=== PATIENT | male | born 1940 | race Caucasian/White ===

== ENCOUNTER → 2017-05-16 | Outpatient (CLI) | payer MEDICARE, OTHER | LOC: RAD 07:32 | PROVIDERS: ATTEND Internal Medicine Cardiovascular Disease | DX: I65.23 Occlusion and stenosis of bilateral carotid arteries (principal); I25.89 Other forms of chronic ischemic heart disease; I25.10 Atherosclerotic heart disease of native coronary artery without angina pectoris; I10 Essential (primary) hypertension; I70.218 Atherosclerosis of native arteries of extremities with intermittent claudication, other extremity | CPT/HCPCS: 78452; 93017; 93880; A9502 ==

== ENCOUNTER → 2017-12-25 | Outpatient (CLI) | payer MEDICARE, OTHER ==
[~2017-12-25] MED LIST: GADOBUTROL 10 MMOL/10 ML PFS ONE
== END | disposition home or self-care (01) ==
LOC: CFH 07:19
PROVIDERS: ATTEND Psychiatry & Neurology Neurology
DX: M50.021 Cervical disc disorder at C4-C5 level with myelopathy (principal); M99.59 Intervertebral disc stenosis of neural canal of abdomen and other regions; T75.3XXA Motion sickness, initial encounter
CPT/HCPCS: 70553; 72156; A9585

== ENCOUNTER 2019-06-09 10:23 | Observation (INO) | payer MEDICARE ==
[~2019-06-09] VITALS: Ht 167.6 cm; Wt 80.1 kg
[2019-06-09 11:26] LABS: BASOPHILS # (AUTO) 0.03 x10^3/uL (0-0.1); BASOPHILS % (AUTO) 1 % (0-1); EOSINOPHILS # (AUTO) 0.13 x10^3/uL (0-0.4); EOSINOPHILS % (AUTO) 2 % (1-7); LYMPHOCYTES # (AUTO) 1.28 x10^3/uL (1-3.4); LYMPHOCYTES % (AUTO) 19 % (22-44); MD NO; MEAN CORPUSCULAR HEMOGLOBIN 32.8 pg (27.5-34.5); MEAN CORPUSCULAR HGB CONC 33.9 g/dL (33.2-36.2); MEAN CORPUSCULAR VOLUME 96.8 fL (81-97); MEAN PLATELET VOLUME 9.4 fL (7.4-10.4); MONOCYTES # (AUTO) 0.67 x10^3/uL (0.2-0.8); MONOCYTES % (AUTO) 10 % (2-9); NEUTROPHILS % (AUTO) 69 % (42-75); PLATELET COUNT 190 x10^3/uL (130-400); RED BLOOD COUNT 4.69 x10^6/uL (4.38-5.82); RED CELL DISTRIBUTION WIDTH 13.5 % (9.4-14.8)
[2019-06-09] MEDS ORDERED: ASPI-496 PO (11:26)
[2019-06-09] MEDS ORDERED: SAW450CA7 PO (11:26)
[2019-06-09] MEDS ORDERED: OMEG1CAP23 PO (11:26)
[2019-06-09] MEDS ORDERED: METO200T47 PO (11:26)
[2019-06-09] MEDS ORDERED: ENAL10TA PO (11:26)
[2019-06-09] MEDS ORDERED: METH5TAB6 PO (11:26)
[2019-06-09] MEDS ORDERED: MAGN400T36 PO (11:26)
[2019-06-09] MEDS ORDERED: CHOL2000 PO (11:26)
[2019-06-09] MEDS ORDERED: BIOT25005 PO (11:26)
[2019-06-09] MEDS ORDERED: ATOR80TA PO (11:26)
[2019-06-09] MEDS ORDERED: FINA5TAB4 PO (11:26)
[2019-06-09 11:30] LABS: ALBUMIN 3.5 g/dL (3.4-5.0); ANION GAP 4 mmol/L (5-15); CALCIUM 9.3 mg/dL (8.5-10.1); CHLORIDE 105 mmol/L (98-107); CREATININE 0.98 mg/dL (0.7-1.3)
[2019-06-09 11:33] LABS: TROPONIN I < 0.015 ng/mL (0.000-0.045)
[2019-06-09] MEDS ORDERED: NITROGLYCERIN OINT 2%, 1GM TP ONE ×2 (12:00→12:03)
--- NOTE | 2019-06-09 12:13 | NUR ---
MD AT BEDSIDE DISCUSSING PLAN OF CARE. PT STATES PAIN IS NOW RADIATING TO HIS BACK. CT TO BE DONE. NITROPASTE PLACED NOTED ON JUL. REPORT TO ARON BIGGS, TELE. TO TOUCH BASES WITH HER AGAIN AFTER CT COMPLETED.
[2019-06-09] MEDS ORDERED: ONDANSETRON 2MG/ML, 2ML ONE (12:18)
[2019-06-09] MEDS ORDERED: ONDANSETRON 2MG/ML, 2ML IV ONE (12:30)
[2019-06-09] MEDS ORDERED: OMNIPAQUE 350 MG/ML, 100ML BOTTLE ONE (12:44)
--- NOTE | 2019-06-09 13:01 | NUR ---
DR FRAUSTO AT [facility]
[2019-06-09] MEDS ORDERED: hydrALAzine 20 MG/ML, 1ML IVPush PRN (13:30)
[2019-06-09] MEDS ORDERED: DOCUSATE 100 MG CAPSULE PO PRN (13:30)
[2019-06-09] MEDS ORDERED: ONDANSETRON ODT 4 MG PO PRN (13:30)
[2019-06-09] MEDS ORDERED: PROMETHAZINE 25 MG/ML, 1ML IM PRN (13:30)
[2019-06-09] MEDS ORDERED: POLYETHYLENE GLYCOL 17 GM PACKET PO PRN (13:30)
[2019-06-09] MEDS ORDERED: ACETAMINOPHEN 325 MG TABLET PO PRN (13:30)
[2019-06-09] MEDS ORDERED: NITROGLYCERIN 0.4 MG BOTTLE (25 TABS) SL PRN (13:30)
[2019-06-09] MEDS ORDERED: ONDANSETRON 2MG/ML, 2ML IVPush PRN (13:30)
[2019-06-09] MEDS ORDERED: OXYcodone IR 5MG TABLET PO PRN (13:30)
[2019-06-09] MEDS ORDERED: BISACODYL 10 MG SUPP PR PRN (13:30)
[2019-06-09 13:46] VITALS: BP 104/69
[2019-06-09 14:02] LABS: FREE T4 (FREE THYROXINE) 1.04 ng/dL (0.76-1.46)
[2019-06-09] MEDS: HEPARIN 5,000 UNITS/ML, 1ML SQ SCH ×2 (14:57→23:26)
[2019-06-09 16:33] LABS: TROPONIN I < 0.015 ng/mL (0.000-0.045)
[2019-06-09 17:41] LABS: MICROSCOPIC AUTO
[2019-06-09 17:49] LABS: CULTURE INDICATED? YES
[2019-06-09 19:06] VITALS: BP 101/62
[2019-06-09 19:15] LABS: TROPONIN I < 0.015 ng/mL (0.000-0.045)
[2019-06-09] MEDS: ATORVASTATIN 80 MG TABLET PO SCH (21:27)
[2019-06-10 01:25] VITALS: BP 97/56
[2019-06-10 01:31] VITALS: BP 100/62
[2019-06-10 04:51] LABS: BASOPHILS # (AUTO) 0.08 x10^3/uL (0-0.1); BASOPHILS % (AUTO) 1 % (0-1); EOSINOPHILS # (AUTO) 0.15 x10^3/uL (0-0.4); EOSINOPHILS % (AUTO) 3 % (1-7); LYMPHOCYTES % (AUTO) 23 % (22-44); MD NO; MEAN CORPUSCULAR HEMOGLOBIN 32.7 pg (27.5-34.5); MEAN CORPUSCULAR HGB CONC 33.7 g/dL (33.2-36.2); MEAN CORPUSCULAR VOLUME 96.9 fL (81-97); MONOCYTES # (AUTO) 0.84 x10^3/uL (0.2-0.8); MONOCYTES % (AUTO) 14 % (2-9); NEUTROPHILS % (AUTO) 59 % (42-75); PLATELET COUNT 145 x10^3/uL (130-400); RED BLOOD COUNT 4.56 x10^6/uL (4.38-5.82); RED CELL DISTRIBUTION WIDTH 13.1 % (9.4-14.8)
[2019-06-10 05:01] LABS: ALBUMIN 3.3 g/dL (3.4-5.0); ANION GAP 6 mmol/L (5-15); CALCIUM 8.8 mg/dL (8.5-10.1); CHLORIDE 106 mmol/L (98-107)
[2019-06-10 05:04] LABS: ALANINE AMINOTRANSFERASE 15 U/L (12-78); ALKALINE PHOSPHATASE 98 U/L (45-117); BILIRUBIN,TOTAL 1.7 mg/dL (0.2-1.0); CHOL/HDL RATIO 2.3; CHOLESTEROL, TOTAL 116 mg/dL (140-239); CREATININE 0.88 mg/dL (0.7-1.3); HDL CHOL % 43 % (26-37); HDL CHOLESTEROL (DIRECT) 50 mg/dL (40-60); LDL CHOLESTEROL,CALCULATED 55 mg/dL (54-169); LDL/HDL RATIO 1.1 (0.5-3.0); TOTAL PROTEIN 6.5 g/dL (6.4-8.2); TRIGLYCERIDES 53 mg/dL (50-200); VLDL CHOLESTEROL 11 mg/dL (0-25)
[2019-06-10] MEDS ORDERED: ASPIRIN 325 MG TABLET EC PO SCH (06:00)
[2019-06-10 06:45] VITALS: BP 107/70
[2019-06-10] MEDS: HEPARIN 5,000 UNITS/ML, 1ML SQ SCH ×3 (07:49→23:36)
[2019-06-10] MEDS: CHOLECALCIFEROL 1,000 UNIT TABLET PO SCH (07:49)
[2019-06-10] MEDS: METHIMAZOLE 5 MG TAB PO SCH (07:50)
[2019-06-10] MEDS: ASPIRIN 81 MG TABLET EC PO SCH (07:50)
[2019-06-10] MEDS: METOPROLOL SUCCINATE 50 MG TAB.ER.24H PO SCH (07:50)
[2019-06-10] MEDS: OMEGA-3/FISH OIL CAPSULE PO SCH (07:50)
[2019-06-10] MEDS: MAGNESIUM OXIDE 400 MG TABLET PO SCH (07:50)
[2019-06-10] MEDS ORDERED: REGADENOSON 0.4 MG/5 ML SYRINGE ONE (08:03)
[2019-06-10] MEDS ORDERED: ENALAPRIL 10 MG TABLET PO SCH (09:00)
[2019-06-10] MEDS ORDERED: TEMPLATE NON-FORMULARY MED. (Biotin** 5,000 MG) PO SCH (09:00)
[2019-06-10] MEDS: CEFTRIAXONE PMX 1GM/50ML 50 ML IV SCH (10:47)
[2019-06-10] MEDS: FINASTERIDE 5 MG TABLET PO SCH (10:47)
[2019-06-10 13:22] VITALS: BP 109/64
[2019-06-10] MEDS: ISOSORBIDE MONONITRATE ER 30 MG TABLET PO SCH (17:48)
[2019-06-10 19:22] VITALS: BP 100/61
[2019-06-10] MEDS: ATORVASTATIN 80 MG TABLET PO SCH (20:03)
[2019-06-11 01:18] VITALS: BP_SYST 105; BP_SYST 98; BP_DIAS 57; BP_DIAS 69
[2019-06-11 07:52] VITALS: BP 108/69
[2019-06-11 09:02] VITALS: BP 114/65
[2019-06-11 09:04] VITALS: BP_SYST 96; BP_DIAS 56; BP_DIAS 62
[2019-06-11] MEDS: CHOLECALCIFEROL 1,000 UNIT TABLET PO SCH (10:00)
[2019-06-11] MEDS: METHIMAZOLE 5 MG TAB PO SCH (10:00)
[2019-06-11] MEDS: HEPARIN 5,000 UNITS/ML, 1ML SQ SCH (10:00)
[2019-06-11] MEDS: METOPROLOL SUCCINATE 50 MG TAB.ER.24H PO SCH (10:00)
[2019-06-11] MEDS: ASPIRIN 81 MG TABLET EC PO SCH (10:00)
[2019-06-11] MEDS: FINASTERIDE 5 MG TABLET PO SCH (10:00)
[2019-06-11] MEDS: CEFTRIAXONE PMX 1GM/50ML 50 ML IV SCH (10:00)
[2019-06-11] MEDS: ISOSORBIDE MONONITRATE ER 30 MG TABLET PO SCH (10:01)
[2019-06-11] MEDS: MAGNESIUM OXIDE 400 MG TABLET PO SCH (10:01)
[2019-06-11] MEDS: OMEGA-3/FISH OIL CAPSULE PO SCH (10:01)
[2019-06-11] MEDS ORDERED: CEPH-368 PO ×3 (10:50→12:22)
[2019-06-11] MEDS ORDERED: ISOS30TA8 PO (10:50)
[2019-06-11] MEDS ORDERED: SODIUM CHLORIDE 0.9% 1,000ML IVBOLUS ONE (11:00)
[2019-06-11 12:25] VITALS: BP_SYST 112; BP_SYST 114; BP_DIAS 54; BP_DIAS 65
[2019-06-11 12:26] VITALS: BP 105/64
== END 2019-06-11 13:05 | disposition home or self-care (01) ==
LOC: ED 12:08 → 5SO 13:15 → DCLOUNGE 06-11 12:39
PROVIDERS: ADMIT Internal Medicine; ATTEND Hospitalist
DX: I25.119 Atherosclerotic heart disease of native coronary artery with unspecified angina pectoris (principal); I65.21 Occlusion and stenosis of right carotid artery; I95.1 Orthostatic hypotension; I10 Essential (primary) hypertension; E78.5 Hyperlipidemia, unspecified; E05.90 Thyrotoxicosis, unspecified without thyrotoxic crisis or storm; I77.819 Aortic ectasia, unspecified site; M48.061 Spinal stenosis, lumbar region without neurogenic claudication; N40.0 Benign prostatic hyperplasia without lower urinary tract symptoms; R07.89 Other chest pain; R94.39 Abnormal result of other cardiovascular function study; E86.0 Dehydration; I25.2 Old myocardial infarction; R42 Dizziness and giddiness; N39.0 Urinary tract infection, site not specified; Z79.82 Long term (current) use of aspirin; Z79.899 Other long term (current) drug therapy; Z87.891 Personal history of nicotine dependence; Z95.1 Presence of aortocoronary bypass graft; Z98.61 Coronary angioplasty status
CPT/HCPCS: 36415; 71045; 71275; 78452; 80048; 80053; 80061; 81001; 82040; 83036; 83735; 84439; 84443; 84484; 85025; 87086; 93005; 93017; 93306; 93880; 96361; 96365; 96366; 96372; 99284; A9502; G0378; J0696; J1644; J2785; J7030; Q9967

== ENCOUNTER 2019-08-16 09:14 | Emergency (ER) | payer MEDICARE ==
[~2019-08-16] VITALS: Ht 175.3 cm; Wt 80.0 kg
[~2019-08-16 09:14] MED LIST changes: +ASPI-496 PO; +ATOR80TA PO; +BIOT25005 PO; +CEPH-368 PO; +CHOL2000 PO; +ENAL10TA PO; +FINA5TAB4 PO; -GADOBUTROL 10 MMOL/10 ML PFS ONE; +ISOS30TA8 PO; +MAGN400T36 PO; +METH5TAB6 PO; +METO200T47 PO; +OMEG1CAP23 PO; +SAW450CA7 PO
[2019-08-16] MEDS ORDERED: ATOR10TA9 PO (09:33)
[2019-08-16] MEDS ORDERED: TAMS-11 PO (09:33)
[2019-08-16] MEDS ORDERED: ENAL2.5T PO (09:33)
[2019-08-16 09:46] LABS: MEAN CORPUSCULAR HEMOGLOBIN 32.8 pg (27.5-34.5); MEAN CORPUSCULAR HGB CONC 33.5 g/dL (33.2-36.2); MEAN CORPUSCULAR VOLUME 98.1 fL (81-97); MEAN PLATELET VOLUME 9.4 fL (7.4-10.4); PLATELET COUNT 132 x10^3/uL (130-400); RED BLOOD COUNT 4.51 x10^6/uL (4.38-5.82); RED CELL DISTRIBUTION WIDTH 13.3 % (9.4-14.8)
--- NOTE | 2019-08-16 09:49 | NUR ---
PT PRESENTS TO ED WITH SWOLLEN, PAINFUL RT ELBOW, STATES IT STARTED YESTERDAY. ALSO C/O WEAKNESS, NAUSEA, "NOT FEELING WELL" STARTING YESTERDAY. PER PT, HE AND HIS WHO HE LIVES WITH HAVE BEEN SELF-ISOLATING FOR THREE WEEKS. NAD NOTED AT THIS TIME. HYPOTENSIVE FOR REMSA, REMAINS SLIGHTLY HYPOTENSIVE AT THIS TIME. SIDE RAILS UP, CALL LIGHT IN REACH. PT HAS CELL PHONE ON LAP. EDUCATED ON NEED TO CALL FOR HELP AND NOT GET OUT OF BED ALONE. AWAITING LABS AND CXR.
--- NOTE | 2019-08-16 09:53 | NUR ---
NC PLACED ON PT.
[2019-08-16 09:54] LABS: ANION GAP 5 mmol/L (5-15); CALCIUM 8.6 mg/dL (8.5-10.1); CHLORIDE 107 mmol/L (98-107); CREATININE 0.97 mg/dL (0.7-1.3)
[2019-08-16 09:55] LABS: ALANINE AMINOTRANSFERASE 20 U/L (12-78); ALBUMIN 3.2 g/dL (3.4-5.0)
[2019-08-16 09:57] LABS: ALKALINE PHOSPHATASE 63 U/L (45-117); BILIRUBIN,TOTAL 2.7 mg/dL (0.2-1.0); TOTAL PROTEIN 6.3 g/dL (6.4-8.2)
[2019-08-16 10:07] LABS: BASOPHILS # (AUTO) 0.05 x10^3/uL (0-0.1); BASOPHILS % (AUTO) 1 % (0-1); EOSINOPHILS # (AUTO) 0.01 x10^3/uL (0-0.4); EOSINOPHILS % (AUTO) 0 % (1-7); LYMPHOCYTES # (AUTO) 1.19 x10^3/uL (1-3.4); LYMPHOCYTES % (AUTO) 10 % (22-44); MD SCAN; MONOCYTES # (AUTO) 0.93 x10^3/uL (0.2-0.8); MONOCYTES % (AUTO) 8 % (2-9); NEUTROPHILS # (AUTO) 9.47 x10^3/uL (1.8-6.8); NEUTROPHILS % (AUTO) 81 % (42-75)
--- NOTE | 2019-08-16 10:35 | NUR ---
PT ASLEEP UPON ENTRY TO ROOM. ADDITIONAL BLANKET APPLIED PER REQUEST. NAD NOTED AT THIS TIME. SIDE RAILS UP, CALL LIGHT IN REACH.
[2019-08-16] MEDS ORDERED: CLINDAMYCIN 300 MG CAPSULE ONE (11:10)
[2019-08-16 11:15] VITALS: BP 104/55
[2019-08-16] MEDS ORDERED: CLINDAMYCIN 300 MG CAPSULE PO ONE (11:30)
--- NOTE | 2019-08-16 11:41 | NUR ---
CALL TO PHARMACY FOR RX. PT ON HER WAY.
== END 2019-08-16 12:08 | disposition home or self-care (01) ==
LOC: ED 09:19
DX: L03.113 Cellulitis of right upper limb (principal); E78.5 Hyperlipidemia, unspecified; Z87.891 Personal history of nicotine dependence
CPT/HCPCS: 36415; 71045; 80053; 84550; 85025; 99284

== ENCOUNTER 2019-08-16 20:27 | Inpatient (IN) | payer MEDICARE ==
[~2019-08-16] VITALS: Ht 175.3 cm; Wt 81.6 kg
[~2019-08-16 20:27] MED LIST changes: +ATOR10TA9 PO; +ENAL2.5T PO; +TAMS-11 PO
--- NOTE | 2019-08-16 20:45 | NUR ---
PT WAS TREATED IN ED THIS MORNING FOR CELLULITIS ON RIGHT ARM. PT GOT RX FOR INFECTION AND HAS TAKEN 2 DOSES THUS FAR. HAS RETURNED THIS EVENING TO GET ARM LOOKED AT
[2019-08-16] MEDS ORDERED: PIPERACILLIN/TAZO/PMX 3.375GM 50 ML ONE (21:12)
[2019-08-16] MEDS ORDERED: VANCOMYCIN PER PHARMACY MC ONE (21:30)
[2019-08-16] MEDS ORDERED: VANCOMYCIN 1,900 MG in SODIUM CHLORIDE 0.9% 250 ML IV ONE (21:30)
[2019-08-16] MEDS ORDERED: PIPERACILLIN/TAZO/PMX 3.375GM 50 ML IVPB ONE (21:30)
[2019-08-16 21:31] LABS: BASOPHILS # (AUTO) 0.02 x10^3/uL (0-0.1); BASOPHILS % (AUTO) 0 % (0-1); EOSINOPHILS % (AUTO) 0 % (1-7); LYMPHOCYTES # (AUTO) 0.77 x10^3/uL (1-3.4); LYMPHOCYTES % (AUTO) 7 % (22-44); MD NO; MEAN CORPUSCULAR HGB CONC 34.2 g/dL (33.2-36.2); MEAN CORPUSCULAR VOLUME 96.6 fL (81-97); MEAN PLATELET VOLUME 9.7 fL (7.4-10.4); MONOCYTES # (AUTO) 0.78 x10^3/uL (0.2-0.8); MONOCYTES % (AUTO) 7 % (2-9); NEUTROPHILS # (AUTO) 10.28 x10^3/uL (1.8-6.8); NEUTROPHILS % (AUTO) 87 % (42-75); PLATELET COUNT 121 x10^3/uL (130-400); RED BLOOD COUNT 4.45 x10^6/uL (4.38-5.82); RED CELL DISTRIBUTION WIDTH 13.3 % (9.4-14.8)
--- NOTE | 2019-08-16 21:31 | NUR ---
PT RESTING IN [facility]. IV ABX INFUSING. VSS. PT EDUCATED ON PLAN OF CARE
[2019-08-16 21:39] LABS: ALBUMIN 3.3 g/dL (3.4-5.0); ANION GAP 7 mmol/L (5-15); CALCIUM 8.7 mg/dL (8.5-10.1); CHLORIDE 103 mmol/L (98-107); CREATININE 0.77 mg/dL (0.7-1.3)
--- NOTE | 2019-08-16 22:10 | NUR ---
PT RESTING IN [facility]. VSS. NAD. AWATING ADMIT
[2019-08-16] MEDS ORDERED: ACETAMINOPHEN 325 MG TABLET ONE (23:00)
[2019-08-16 23:18] VITALS: BP 135/81
[2019-08-16] MEDS ORDERED: ACETAMINOPHEN 325 MG TABLET PO ONE (23:30)
[2019-08-17 01:00] VITALS: BP 100/54
[2019-08-17] MEDS ORDERED: ONDANSETRON 2MG/ML, 2ML IVPush PRN (01:00)
[2019-08-17] MEDS ORDERED: VANCOMYCIN PER PHARMACY MC PRN (01:00)
[2019-08-17] MEDS ORDERED: TRAZODONE 50MG TABLET PO PRN (01:00)
[2019-08-17] MEDS ORDERED: hydrALAzine 20 MG/ML, 1ML IVPush PRN (01:00)
[2019-08-17] MEDS: ENOXAPARIN 40 MG/0.4 ML SQ SCH (01:25)
[2019-08-17] MEDS ORDERED: PHARMACOKINETIC CONSULTATION MC ONE (03:00)
[2019-08-17] MEDS ORDERED: PHARMACOKINETIC MONITORING MC PRN (03:00)
[2019-08-17] MEDS: PIPERACILLIN/TAZO/PMX 3.375GM 50 ML IV SCH ×3 (03:55→18:07)
[2019-08-17 06:35] VITALS: BP 113/68
[2019-08-17] MEDS: SENNA/DOCUSATE TABLET PO SCH (09:15)
[2019-08-17] MEDS: METOPROLOL SUCCINATE 50 MG TAB.ER.24H PO SCH (09:15)
[2019-08-17] MEDS: ASPIRIN 81 MG TABLET EC PO SCH (09:15)
[2019-08-17] MEDS: METHIMAZOLE 5 MG TAB PO SCH (09:15)
[2019-08-17] MEDS: ENALAPRIL 2.5MG TABLET PO SCH (09:16)
[2019-08-17] MEDS: FINASTERIDE 5 MG TABLET PO SCH (09:16)
[2019-08-17 13:52] VITALS: BP 102/61
[2019-08-17] MEDS ORDERED: GADOTERATE 7.5 MMOL/15 ML SYR ONE (17:46)
[2019-08-17] MEDS: ACETAMINOPHEN 325 MG TABLET PO PRN (18:41)
[2019-08-17 19:40] VITALS: BP_SYST 157; BP_SYST 92; BP_DIAS 61; BP_DIAS 81
[2019-08-17] MEDS: ATORVASTATIN 80 MG TABLET PO SCH (20:12)
[2019-08-17] MEDS: VANCOMYCIN 1,500 MG in SODIUM CHLORIDE 0.9% 250 ML IV SCH (21:59)
[2019-08-18] MEDS: PIPERACILLIN/TAZO/PMX 3.375GM 50 ML IV SCH ×4 (00:10→19:00)
[2019-08-18] MEDS: ENOXAPARIN 40 MG/0.4 ML SQ SCH (00:10)
[2019-08-18 00:13] VITALS: BP 105/69
[2019-08-18 05:50] LABS: CHLORIDE 105 mmol/L (98-107)
[2019-08-18 05:55] LABS: ANION GAP 5 mmol/L (5-15); CALCIUM 8.9 mg/dL (8.5-10.1); CREATININE 0.87 mg/dL (0.7-1.3)
[2019-08-18 05:58] LABS: BASOPHILS # (AUTO) 0.02 x10^3/uL (0-0.1); BASOPHILS % (AUTO) 0 % (0-1); EOSINOPHILS # (AUTO) 0.15 x10^3/uL (0-0.4); EOSINOPHILS % (AUTO) 1 % (1-7); LYMPHOCYTES # (AUTO) 0.98 x10^3/uL (1-3.4); LYMPHOCYTES % (AUTO) 8 % (22-44); MD NO; MEAN CORPUSCULAR HEMOGLOBIN 32.4 pg (27.5-34.5); MEAN CORPUSCULAR HGB CONC 33.3 g/dL (33.2-36.2); MEAN CORPUSCULAR VOLUME 97.2 fL (81-97); MEAN PLATELET VOLUME 10.3 fL (7.4-10.4); MONOCYTES # (AUTO) 0.76 x10^3/uL (0.2-0.8); MONOCYTES % (AUTO) 6 % (2-9); NEUTROPHILS # (AUTO) 10.42 x10^3/uL (1.8-6.8); NEUTROPHILS % (AUTO) 85 % (42-75); PLATELET COUNT 119 x10^3/uL (130-400); RED BLOOD COUNT 4.59 x10^6/uL (4.38-5.82); RED CELL DISTRIBUTION WIDTH 13.6 % (9.4-14.8)
[2019-08-18 06:51] VITALS: BP 112/75
[2019-08-18] MEDS: METOPROLOL SUCCINATE 50 MG TAB.ER.24H PO SCH (11:02)
[2019-08-18] MEDS: METHIMAZOLE 5 MG TAB PO SCH (11:02)
[2019-08-18] MEDS: ASPIRIN 81 MG TABLET EC PO SCH (11:02)
[2019-08-18] MEDS: SENNA/DOCUSATE TABLET PO SCH (11:02)
[2019-08-18] MEDS: FINASTERIDE 5 MG TABLET PO SCH (11:03)
[2019-08-18] MEDS: ENALAPRIL 2.5MG TABLET PO SCH (11:03)
[2019-08-18 13:25] VITALS: BP 121/83
[2019-08-18] MEDS ORDERED: CHLORHEXIDINE 15 ML UDC ONE (18:18)
[2019-08-18 19:38] VITALS: BP 124/81
[2019-08-18] MEDS ORDERED: FENTANYL PF 100 MCG/2ML ONE ×2 (20:16→21:27)
[2019-08-18] MEDS ORDERED: PHENYLEPHRINE 10 MG/ML ONE (20:28)
[2019-08-18] MEDS ORDERED: ONDANSETRON 2MG/ML, 2ML ONE (21:05)
[2019-08-18] MEDS ORDERED: PROPOFOL 10 MG/ML, 20ML ONE (21:05)
[2019-08-18] MEDS ORDERED: SUCCINYLCHOLINE 20 MG/ML, 10ML ONE (21:05)
[2019-08-18] MEDS ORDERED: DEXAMETHASONE 4 MG/ML, 1ML ONE (21:05)
[2019-08-18] MEDS ORDERED: OXYcodone 5 MG/5 ML ORAL.SOL UDC ONE (21:27)
[2019-08-18] MEDS ORDERED: ACETAMINOPHEN 325 MG TABLET PO PRN (21:30)
[2019-08-18] MEDS ORDERED: MEPERIDINE/PF 25MG/ML,1ML IVPush PRN (21:30)
[2019-08-18] MEDS ORDERED: OXYcodone 5 MG/5 ML ORAL.SOL UDC PO PRN (21:30)
[2019-08-18] MEDS ORDERED: HYDROmorphone 2 MG/ML, 1ML IVPush PRN (21:30)
[2019-08-18] MEDS ORDERED: MIDAZOLAM 1 MG/ML, 2ML IV PRN (21:30)
[2019-08-18] MEDS ORDERED: METOPROLOL 1 MG/ML, 5ML IV PRN (21:30)
[2019-08-18] MEDS ORDERED: hydrALAzine 20 MG/ML, 1ML IV PRN (21:30)
[2019-08-18] MEDS ORDERED: PROMETHAZINE 25 MG/ML, 1ML IV PRN (21:30)
[2019-08-18] MEDS: FENTANYL PF 100 MCG/2ML IV PRN ×2 (21:30→21:44)
[2019-08-19] MEDS: VANCOMYCIN 1,500 MG in SODIUM CHLORIDE 0.9% 250 ML IV SCH (00:14)
[2019-08-19] MEDS: ATORVASTATIN 80 MG TABLET PO SCH ×2 (00:15→21:05)
[2019-08-19] MEDS: PIPERACILLIN/TAZO/PMX 3.375GM 50 ML IV SCH ×4 (02:06→21:06)
[2019-08-19 02:38] VITALS: BP 98/66
[2019-08-19 05:22] LABS: BASOPHILS # (AUTO) 0.01 x10^3/uL (0-0.1); BASOPHILS % (AUTO) 0 % (0-1); EOSINOPHILS % (AUTO) 0 % (1-7); LYMPHOCYTES % (AUTO) 6 % (22-44); MD NO; MEAN CORPUSCULAR HEMOGLOBIN 33.1 pg (27.5-34.5); MEAN CORPUSCULAR HGB CONC 34.2 g/dL (33.2-36.2); MEAN CORPUSCULAR VOLUME 96.8 fL (81-97); MEAN PLATELET VOLUME 10.1 fL (7.4-10.4); MONOCYTES # (AUTO) 0.18 x10^3/uL (0.2-0.8); MONOCYTES % (AUTO) 2 % (2-9); NEUTROPHILS # (AUTO) 8.11 x10^3/uL (1.8-6.8); NEUTROPHILS % (AUTO) 92 % (42-75); PLATELET COUNT 131 x10^3/uL (130-400); RED CELL DISTRIBUTION WIDTH 13.4 % (9.4-14.8)
[2019-08-19] MEDS: ACETAMINOPHEN 325 MG TABLET PO PRN (05:32)
[2019-08-19 07:16] VITALS: BP 108/77
[2019-08-19] MEDS: FINASTERIDE 5 MG TABLET PO SCH (08:23)
[2019-08-19] MEDS: SENNA/DOCUSATE TABLET PO SCH (08:24)
[2019-08-19] MEDS: METHIMAZOLE 5 MG TAB PO SCH (08:24)
[2019-08-19] MEDS: ASPIRIN 81 MG TABLET EC PO SCH (08:24)
[2019-08-19] MEDS: ENALAPRIL 2.5MG TABLET PO SCH (08:25)
[2019-08-19] MEDS: METOPROLOL SUCCINATE 50 MG TAB.ER.24H PO SCH (08:25)
[2019-08-19 13:41] VITALS: BP 99/66
[2019-08-19 19:23] VITALS: BP 108/74
[2019-08-19] MEDS: ENOXAPARIN 40 MG/0.4 ML SQ SCH (21:05)
[2019-08-20] MEDS: VANCOMYCIN 1,500 MG in SODIUM CHLORIDE 0.9% 250 ML IV SCH (00:14)
[2019-08-20 00:17] VITALS: BP 114/80
[2019-08-20] MEDS: PIPERACILLIN/TAZO/PMX 3.375GM 50 ML IV SCH ×2 (03:32→09:52)
[2019-08-20 05:55] LABS: BASOPHILS # (AUTO) 0.02 x10^3/uL (0-0.1); BASOPHILS % (AUTO) 0 % (0-1); EOSINOPHILS # (AUTO) 0.06 x10^3/uL (0-0.4); EOSINOPHILS % (AUTO) 1 % (1-7); LYMPHOCYTES # (AUTO) 1.11 x10^3/uL (1-3.4); LYMPHOCYTES % (AUTO) 11 % (22-44); MD NO; MEAN CORPUSCULAR HEMOGLOBIN 32.5 pg (27.5-34.5); MEAN CORPUSCULAR HGB CONC 33.5 g/dL (33.2-36.2); MEAN CORPUSCULAR VOLUME 97.2 fL (81-97); MEAN PLATELET VOLUME 10.5 fL (7.4-10.4); MONOCYTES # (AUTO) 0.73 x10^3/uL (0.2-0.8); MONOCYTES % (AUTO) 7 % (2-9); NEUTROPHILS # (AUTO) 8.45 x10^3/uL (1.8-6.8); NEUTROPHILS % (AUTO) 82 % (42-75); PLATELET COUNT 150 x10^3/uL (130-400); RED BLOOD COUNT 4.36 x10^6/uL (4.38-5.82); RED CELL DISTRIBUTION WIDTH 13.2 % (9.4-14.8)
[2019-08-20 05:56] LABS: ALBUMIN 2.5 g/dL (3.4-5.0); ANION GAP 6 mmol/L (5-15); CHLORIDE 105 mmol/L (98-107)
[2019-08-20 06:00] LABS: ALANINE AMINOTRANSFERASE 28 U/L (12-78); ALKALINE PHOSPHATASE 66 U/L (45-117); CREATININE 0.78 mg/dL (0.7-1.3); TOTAL PROTEIN 6.3 g/dL (6.4-8.2)
[2019-08-20 07:16] VITALS: BP 131/92
[2019-08-20] MEDS: SENNA/DOCUSATE TABLET PO SCH (09:00)
[2019-08-20] MEDS: FINASTERIDE 5 MG TABLET PO SCH (09:40)
[2019-08-20] MEDS: METOPROLOL SUCCINATE 50 MG TAB.ER.24H PO SCH (09:51)
[2019-08-20] MEDS: ENALAPRIL 2.5MG TABLET PO SCH (09:51)
[2019-08-20] MEDS: METHIMAZOLE 5 MG TAB PO SCH (09:51)
[2019-08-20] MEDS: ASPIRIN 81 MG TABLET EC PO SCH (09:51)
[2019-08-20 13:32] VITALS: BP 117/79
[2019-08-20] MEDS: VANCOMYCIN 1,600 MG in SODIUM CHLORIDE 0.9% 250 ML IV SCH (16:30)
[2019-08-20 18:37] VITALS: BP 126/78
[2019-08-20] MEDS: ACETAMINOPHEN 325 MG TABLET PO PRN (20:31)
[2019-08-20] MEDS: ATORVASTATIN 80 MG TABLET PO SCH (20:31)
[2019-08-20] MEDS: ENOXAPARIN 40 MG/0.4 ML SQ SCH (20:32)
[2019-08-21 01:43] VITALS: BP 111/68
[2019-08-21 03:56] VITALS: BP 113/67
[2019-08-21 07:25] LABS: BASOPHILS # (AUTO) 0.04 x10^3/uL (0-0.1); BASOPHILS % (AUTO) 1 % (0-1); EOSINOPHILS # (AUTO) 0.25 x10^3/uL (0-0.4); EOSINOPHILS % (AUTO) 4 % (1-7); LYMPHOCYTES # (AUTO) 1.32 x10^3/uL (1-3.4); LYMPHOCYTES % (AUTO) 21 % (22-44); MD NO; MEAN CORPUSCULAR HEMOGLOBIN 32.3 pg (27.5-34.5); MEAN CORPUSCULAR HGB CONC 33.4 g/dL (33.2-36.2); MEAN CORPUSCULAR VOLUME 96.8 fL (81-97); MEAN PLATELET VOLUME 9.9 fL (7.4-10.4); MONOCYTES # (AUTO) 0.68 x10^3/uL (0.2-0.8); MONOCYTES % (AUTO) 11 % (2-9); NEUTROPHILS # (AUTO) 4.12 x10^3/uL (1.8-6.8); NEUTROPHILS % (AUTO) 64 % (42-75); PLATELET COUNT 166 x10^3/uL (130-400); RED CELL DISTRIBUTION WIDTH 13.3 % (9.4-14.8)
[2019-08-21 07:28] VITALS: BP 116/72
[2019-08-21 08:28] VITALS: BP 122/75
[2019-08-21] MEDS: METOPROLOL SUCCINATE 50 MG TAB.ER.24H PO SCH (08:30)
[2019-08-21] MEDS: ASPIRIN 81 MG TABLET EC PO SCH (08:30)
[2019-08-21] MEDS: METHIMAZOLE 5 MG TAB PO SCH (08:30)
[2019-08-21] MEDS: ENALAPRIL 2.5MG TABLET PO SCH (08:30)
[2019-08-21] MEDS: SENNA/DOCUSATE TABLET PO SCH (08:31)
[2019-08-21] MEDS: FINASTERIDE 5 MG TABLET PO SCH (08:31)
[2019-08-21] MEDS: VANCOMYCIN 1,600 MG in SODIUM CHLORIDE 0.9% 250 ML IV SCH (10:00)
[2019-08-21] MEDS ORDERED: LEVO750T26 PO (11:14)
[2019-08-21 13:45] VITALS: BP 106/69
== END 2019-08-21 14:45 | disposition home or self-care (01) | DRG 603 ==
LOC: ED 21:08 → EDIP 23:48 → 3N 23:50 → 4NE 08-18 22:16
PROVIDERS: ADMIT Family Medicine; ATTEND Internal Medicine
PROC: 0J9G00Z Drainage of Right Lower Arm Subcutaneous Tissue and Fascia with Drainage Device, Open Approach (ICD-10-PCS; principal; 2019-08-18 17:00)
DX: L02.413 Cutaneous abscess of right upper limb (principal); E87.1 Hypo-osmolality and hyponatremia; L03.113 Cellulitis of right upper limb; I25.10 Atherosclerotic heart disease of native coronary artery without angina pectoris; I77.810 Thoracic aortic ectasia; M48.061 Spinal stenosis, lumbar region without neurogenic claudication; E05.90 Thyrotoxicosis, unspecified without thyrotoxic crisis or storm; R73.9 Hyperglycemia, unspecified; I10 Essential (primary) hypertension; E78.5 Hyperlipidemia, unspecified; N40.0 Benign prostatic hyperplasia without lower urinary tract symptoms; Z95.1 Presence of aortocoronary bypass graft; Z87.891 Personal history of nicotine dependence; Z80.0 Family history of malignant neoplasm of digestive organs; Z88.5 Allergy status to narcotic agent; Z88.8 Allergy status to other drugs, medicaments and biological substances; B95.61 Methicillin susceptible Staphylococcus aureus infection as the cause of diseases classified elsewhere
CPT/HCPCS: 36415; 80048; 80053; 80202; 82040; 83605; 84145; 85025; 87040; 87070; 87075; 87077; 87081; 87186; 87205; 96365; G0378; J1100; J1650; J2405; J2543; J2704; J3010; J3370; A9575; J0330; J2370; J7050

== ENCOUNTER → 2020-10-18 | Outpatient (CLI) | payer MEDICARE ==
[~2020-10-18] MED LIST changes: -ENAL10TA PO; +ENAL10TA9 PO; -ENAL2.5T PO; +ENAL2.5T8 PO; +LEVO750T26 PO
== END | disposition home or self-care (01) ==
LOC: CFH 07:52
PROVIDERS: ATTEND Internal Medicine Cardiovascular Disease
DX: I21.19 ST elevation (STEMI) myocardial infarction involving other coronary artery of inferior wall (principal); R07.9 Chest pain, unspecified
CPT/HCPCS: 78452; 93017; A9502